=== PATIENT | male | born 1985 | race African-American/Black ===

== ENCOUNTER 2023-11-23 12:52 | Emergency (ER) | payer MEDICARE, MEDICAID, SELFPAY ==
[2023-11-23] VITALS (10 sets, daily range): BP systolic 133–154; BP diastolic 82–109; PULSE 57–72; RESP 12–20; TEMP 36.6–37.2; O2SAT 99–100
--- NOTE | ~2023-11-23 | XR_ITS ---
EXAMINATION: XR chest 1V portable DATE: 11/23/2023 13:20 INDICATION: Cough and congestion TECHNIQUE: frontal view of the chest was obtained. COMPARISON: Chest radiograph dated 06/05/2017 FINDINGS: The lungs remain clear with no focal airspace opacities, pulmonary edema, pleural effusion or pneumot horax. The cardiomediastinal silhouette is normal. Visualized bones and soft tissues are unremarkable . IMPRESSION: 1. No acute cardiopulmonary disease. Reviewed, dictated and finalized at location L.
--- NOTE | 2023-11-23 13:47 | ED.URI ---
HPI - URI/Sore Throat General Chief Complaint: Upper Respiratory Infection Stated Complaint: congestion, concerned for pneumonia Time Seen by Provider: 11/23/23 13:42 History of Present Illness HPI Narrative: Patient is a 38 year old male with history of prior hemorrhagic stroke, lives at [facility] here with nasal congestion. Per his nurse at the facility, criminal justice social worker was visiting him, and he requested he come into the ER. DPOA agreed he could be transported. He said he was having some nasal congestion and phlegm in his throat, has needed to be suctioned in the past. Sister/POA wanted him to come in and be evaluated. His nursing denies witnessing any cough, congestion. He reportedly did have COVID in October. Patient denies any complaints. Denies cough, congestion, fever, sick contacts. Related Data Allergies Allergy/AdvReac Type Severity Reaction Status Date / Time No Known Allergies Allergy Unverified 06/05/17 18:00 Review of Systems Review of Systems: ROS unobtainable: Yes unobtainable due to medical condition (verbal delay due to prior stroke) Exam Narrative: GENERAL: Well-appearing, well-nourished, and in no acute distress. 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 EYES: PERRLA and EOMI. ENT: Nares clear. Mucous membranes moist. NECK: Supple. CHEST: Clear to auscultation. No respiratory distress. HEART: Regular rate and rhythm. Normal peripheral pulses. ABDOMEN: Soft, nontender, nondistended. Well healing prior G tube site mid abdomen. EXTREMITIES: Normal range of motion. No edema. SKIN: Warm, dry, no rash. NEURO: No focal deficits. Alert and oriented x2. Course Course Emergency Course: Chart review performed, patient here from [facility] for evaluation for cough and flu-like symptoms. He reportedly had COVID in early October. Triage vitals normal. No prior visits in our system. Patient seen evaluated, nontoxic appearing, in no respiratory distress, no cough witnessed on exam with normal respiratory breath sounds. Chest x-ray performed per triage protocol negative. Viral swab pending. I did discuss case with patient's nursing staff, no concerns from their end, patient and DPOA had requested to be transported in instead of doing testing at his facility. Anticipate discharge back to facility. Patient is positive for COVID and influenza. He recently had COVID last month, suspect this is residual positive test. Anticipate his new symptoms are likely due to RSV. Reevaluated, non toxic appearing, continues to have no respiratory distress on exam. He is in no respiratory distress here in the department, he should be stable for discharge back to his facility at this time. The results of pertinent diagnostic studies and exam findings were discussed. The patient?s provisional diagnosis and plan of care were discussed with the patient and present family. The patient and/or present family expressed understanding of the diagnosis and plan. The nurse was instructed to provide written instructions and appropriate follow-up information. The patient understands their need and responsibility to obtain additional follow-up as instructed. The risks of medications administered and prescribed were discussed with the patient and family present. Vital Signs Vital signs: Vital Signs Temperature 97.9 F 11/23/23 13:00 Pulse Rate 60 11/23/23 13:00 Respiratory Rate 20 11/23/23 13:00 Blood Pressure 133/82 11/23/23 13:00 Pulse Oximetry 99 11/23/23 13:00 Oxygen Delivery Room Air 11/23/23 13:00 Temperature 98.9 F 11/23/23 13:10 Pulse Rate 57 L 11/23/23 13:30 Respiratory Rate 12 11/23/23 13:10 Blood Pressure 136/97 H 11/23/23 14:15 Pulse Oximetry 99 11/23/23 14:15 Oxygen Delivery Room Air 11/23/23 13:10 MDM - URI/Sore Throat Lab Data Labs: Lab Results 11/23/23 Range/Units 13:13 Influenza A (RT-PCR) Negative (N
[2023-11-23 14:29] LABS: Influenza A QL RT-PCR Negative (Negative); Influenza B QL RT-PCR Negative (Negative); RSV RNA, RT-PCR Positive (Negative); SARS-CoV-2 RNA PCR Positive (Negative)
== END 2023-11-23 15:30 ==
PROVIDERS: Emergency Medicine; Emergency Provider Student in an Organized Health Care Education/Training Program
DX: J21.0 Acute bronchiolitis due to respiratory syncytial virus (principal); Z20.822 Contact with and (suspected) exposure to COVID-19; Z86.16 Personal history of COVID-19; Z86.73 Personal history of transient ischemic attack (TIA), and cerebral infarction without residual deficits
CPT/HCPCS: 71045; 87637; 99283